=== PATIENT | male | born 1990 | race Caucasian/White ===

== ENCOUNTER → 2021-05-04 | Emergency (ER) | payer BC, MEDICAID, SELFPAY ==
[~2021-05-04] VITALS: Ht 170.2 cm; Wt 72.6 kg
[2021-05-04 16:03] VITALS: BP_SYST 135
--- NOTE | 2021-05-04 16:10 | NUR ---
Patient triaged and placed in waiting room. VSS and patient appears in no acute distress at this time. Accompanied by PARTNER, awaiting available bed, and MD notified of need for MSE.
== END | disposition left against medical advice (07) ==
LOC: SED 15:51
DX: T17.208A Unspecified foreign body in pharynx causing other injury, initial encounter (principal); X58.XXXA Exposure to other specified factors, initial encounter; Y93.89 Activity, other specified; Y92.89 Other specified places as the place of occurrence of the external cause; Y99.8 Other external cause status; Z53.21 Procedure and treatment not carried out due to patient leaving prior to being seen by health care provider